=== PATIENT | female | born 1940 | race Caucasian/White ===

== ENCOUNTER 2021-11-08 22:52 | Inpatient (IN) | payer MEDICARE ==
[~2021-11-08] VITALS: Ht 175.3 cm; Wt 64.0 kg
[2021-11-08] MEDS ORDERED: IV NS 1000 ML 1,000 ML IV ONE (23:00)
[2021-11-08] MEDS ORDERED: MECLIZINE HCL 25 MG TABLET PO ONE (23:00)
[2021-11-08] MEDS ORDERED: PROCHLORPERAZINE EDISYLATE 10 MG/2 ML VIAL IV ONE (23:00)
[2021-11-08] MEDS ORDERED: MECLIZINE HCL 25 MG TABLET ONE (23:21)
[2021-11-08] MEDS ORDERED: PROCHLORPERAZINE EDISYLATE 10 MG/2 ML VIAL ONE (23:21)
--- NOTE | 2021-11-08 23:23 | NUR ---
pt brought in by [facility]. pt c/o nausea and high blood pressure. pt a/o
[2021-11-08 23:38] LABS: HEMATOCRIT 36.2 % (31.2-41.9); MEAN CORPUSCULAR HEMOGLOBIN 31.5 uug (24.7-32.8); MEAN CORPUSCULAR VOLUME 92.7 fL (75.5-95.3); PLATELET COUNT (AUTO) 193 K/uL (179-408)
[2021-11-08 23:40] LABS: CREATININE 0.6 mg/dL (0.6-1.3); POTASSIUM 3.3 mmol/L (3.5-5.1)
[2021-11-08 23:54] LABS: BILIRUBIN,DIRECT 0.1 mg/dL (0.0-0.2); BILIRUBIN,TOTAL 0.3 mg/dL (0.2-1.0); TOTAL PROTEIN, SERUM 6.6 g/dL (6.4-8.2)
[2021-11-09] MEDS: MAGNESIUM SULFATE/D5W 100 ML IV SCH ×4 (00:50→03:18)
[2021-11-09] MEDS ORDERED: MAGNESIUM SULFATE/D5W 400 ML ONE (00:51)
[2021-11-09] MEDS ORDERED: POTASSIUM CHLORIDE 200 ML ONE (00:52)
[2021-11-09 01:17] LABS: *BILIRUBIN,URIN NEGATIVE (NEGATIVE); *BLOOD, URINE NEGATIVE (NEGATIVE); *CLARITY,URINE CLEAR (CLEAR); *COLOR,URINE YELLOW (YELLOW); *KETONES,URINE 3+ (NEGATIVE); LEUKOCYTE ESTERASE ,URINE NEGATIVE (NEGATIVE); NITRITE, URINE NEGATIVE (NEGATIVE); UGLUCOSE NEGATIVE (NEGATIVE)
[2021-11-09] MEDS: POTASSIUM CHLORIDE 50 ML IV SCH ×4 (01:30→04:00)
--- NOTE | 2021-11-09 01:30 | NUR ---
pt moved to room 5a.
--- NOTE | 2021-11-09 01:50 | NUR ---
call to epic reach md on panel.
[2021-11-09] MEDS ORDERED: DEXAMETHASONE SOD PHOSPHATE 4 MG INJ IV ONE ×2 (02:00→09:00)
--- NOTE | 2021-11-09 02:19 | NUR ---
call to epic panel eduardo lee DNP.
[2021-11-09] MEDS ORDERED: MAGNESIUM HYDROXIDE 30 ML LIQUID UDC PO PRN (02:30)
[2021-11-09] MEDS ORDERED: ONDANSETRON 4 MG/2 ML VIAL IV PRN (02:30)
[2021-11-09] MEDS ORDERED: IV NS 1000 ML 1,000 ML IV PRN (02:30)
[2021-11-09] MEDS ORDERED: DEXAMETHASONE SOD PHOSPHATE 4 MG INJ ONE (02:31)
--- NOTE | 2021-11-09 02:34 | NUR ---
Brittni Wynn called spoke with Dr. Marte regarding admission to hospital.
[2021-11-09] MEDS ORDERED: ATOR10TA PO (03:15)
[2021-11-09] MEDS ORDERED: CARB200T PO (03:15)
[2021-11-09] MEDS: ENOXAPARIN SODIUM 40 MG/0.4 ML DISP.SYRIN SQ SCH ×2 (03:45→22:13)
[2021-11-09] MEDS ORDERED: ENOXAPARIN SODIUM 40 MG/0.4 ML DISP.SYRIN SQ ONE ×2 (03:51→22:18)
--- NOTE | 2021-11-09 07:07 | NUR ---
report given to fe kaplan.
[2021-11-09 07:09] LABS: HEMATOCRIT 36.6 % (31.2-41.9); MEAN CORPUSCULAR VOLUME 92.2 fL (75.5-95.3); PLATELET COUNT (AUTO) 210 K/uL (179-408)
[2021-11-09 07:24] LABS: CARBON DIOXIDE 24 mmol/L (21-32); CHLORIDE 101 mmol/L (98-107); CREATININE 0.5 mg/dL (0.6-1.3); GLUCOSE 111 mg/dL (74-106); MAGNESIUM 2.9 mg/dL (1.8-2.4); PHOSPHOROUS 2.7 mg/dL (2.5-4.9); POTASSIUM 4.1 mmol/L (3.5-5.1); UREA NITROGEN, BLOOD 8 mg/dL (7-18)
[2021-11-09] MEDS ORDERED: DEXAMETHASONE SOD PHOSPHATE 10 MG INJ ONE (08:47)
--- NOTE | 2021-11-09 09:30 | NUR ---
DR denney at the bedside for MSE.
[2021-11-09] MEDS ORDERED: CARB400T8 PO (12:37)
--- NOTE | 2021-11-09 19:37 | NUR ---
pt awake alert denies pain.
--- NOTE | 2021-11-10 01:02 | NUR ---
pt resting comfortably denies pain.
--- NOTE | 2021-11-10 01:49 | NUR ---
pt placed in hospital bed. pt ambulated to bed anival well, no dizziness noted.
[2021-11-10] MEDS: ACETAMINOPHEN 325 MG TABLET PO PRN ×2 (05:37→19:16)
[2021-11-10] MEDS ORDERED: ACETAMINOPHEN 325 MG TABLET ONE ×2 (05:43→19:22)
--- NOTE | 2021-11-10 07:34 | NUR ---
PT IS IN BED 1B. DR JOSEPH EVALUATED THE PT.
[2021-11-10] MEDS: CARBAMAZEPINE XR 100 MG TAB.SR.12H PO SCH ×2 (09:58→21:19)
[2021-11-10] MEDS ORDERED: CARBAMAZEPINE 200 MG TABLET ONE (10:01)
--- NOTE | 2021-11-10 14:43 | NUR ---
PT IS RESTING IN BED COMFORTABLY. NO S/S OF ACUTE DISTRESS AT THIS TIME.
--- NOTE | 2021-11-10 19:06 | NUR ---
RECEIVED REPORT FROM CHERIE ORTIZ. PT NOTED TO BE IN BED. NO SOB OR LABORED BREATHING. AFEBRILE.
--- NOTE | 2021-11-10 20:15 | NUR ---
PT NOTED TO BE SOILED, PROVIDED PROPER PERINEAL CARE, NOW NOTED TO BE CLEAN AND DRY. COMFORTABLE, DENIES ANY PAIN/DISCOMFORT.
[2021-11-10] MEDS ORDERED: ATORVASTATIN 10 MG TABLET PO SCH (21:00)
[2021-11-10] MEDS: ENOXAPARIN SODIUM 40 MG/0.4 ML DISP.SYRIN SQ SCH (21:19)
[2021-11-10] MEDS ORDERED: ENOXAPARIN SODIUM 40 MG/0.4 ML DISP.SYRIN SQ ONE (21:21)
[2021-11-10] MEDS ORDERED: CARBAMAZEPINE XR 100 MG TAB.SR.12H PO ONE (21:21)
--- NOTE | 2021-11-11 00:13 | NUR ---
PT IN BED EYES CLOSED, BREATHING EVEN AND UNLABORED.
--- NOTE | 2021-11-11 04:02 | NUR ---
Patient is resting comfortably in bed with eyes closed.
--- NOTE | 2021-11-11 06:22 | NUR ---
PROVIDED PT WITH BED BED AND PROPER PERINEAL CARE. DENIES ANY PAIN/DISCOMFORT. NOW RESTING COMFORTABLY IN BED, CLEAN AND DRY.
[2021-11-11] MEDS ORDERED: CEFTRIAXONE 1 G in IV DEXTROSE 5% 50 ML IV SCH (08:45)
[2021-11-11] MEDS ORDERED: AZITHROMYCIN IV 500 MG in IV DEXTROSE 5% 250 ML IV SCH (09:00)
[2021-11-11] MEDS ORDERED: DEXAMETHASONE SOD PHOSPHATE 4 MG INJ IV SCH (09:00)
[2021-11-11] MEDS ORDERED: DEXAMETHASONE SOD PHOSPHATE 10 MG INJ ONE (09:23)
[2021-11-11] MEDS ORDERED: AZITHROMYCIN 500MG/ D5W 250ML IVPB **ER PYXIS ONLY IV ONE (09:24)
[2021-11-11 09:30] LABS: HEMATOCRIT 39.2 % (31.2-41.9); MEAN CORPUSCULAR HEMOGLOBIN 31.3 uug (24.7-32.8); MEAN CORPUSCULAR VOLUME 91.6 fL (75.5-95.3); PLATELET COUNT (AUTO) 229 K/uL (179-408)
[2021-11-11 09:39] LABS: CREATININE 0.7 mg/dL (0.6-1.3); POTASSIUM 3.8 mmol/L (3.5-5.1)
[2021-11-11] MEDS: CARBAMAZEPINE XR 100 MG TAB.SR.12H PO SCH (09:39)
[2021-11-11 09:53] LABS: BILIRUBIN,TOTAL 0.4 mg/dL (0.2-1.0); MAGNESIUM 1.8 mg/dL (1.8-2.4); PHOSPHOROUS 3.7 mg/dL (2.5-4.9); THYROID STIMULATING HORMONE 0.951 mIU/mL (0.358-3.740); TOTAL PROTEIN, SERUM 6.9 g/dL (6.4-8.2)
[2021-11-11] MEDS ORDERED: AZIT250T PO (12:15)
--- NOTE | 2021-11-11 13:30 | NUR ---
Received telephone call from case folder Grisel ([phone]) who stated pt will be discharged home. Pt states she lives alone. PT came to eval the pt and stated pt was unable to ambulate with walker without assistance. PT stated she will call Grisel and update her.
--- NOTE | 2021-11-11 14:22 | NUR ---
PT WAS D/C'd TO HOME. D/C INSTRUCTIONS GIVEN TO THE PT BY DR LEE. PT EVALUATED THE PT AND TALKED TO STENCIL INSPECTOR DIXIE ABOUT ARRANGING PT's HOME CARE NURSE AND PT WISITS TO HELP THE PT. PT WAS TRANSFERED TO HER HOUS BY [facility]. NO S/S OF DISTRESS AT THE TIME OF DISCHARGE.
[2021-11-11 14:26] VITALS: BP 126/69
== END 2021-11-11 15:00 | disposition home health service (06) | DRG 177 ==
LOC: ER 22:56 → TRANSITION 11-09 03:21
PROVIDERS: ADMIT Internal Medicine; ATTEND Internal Medicine
DX: U07.1 COVID-19 (principal); J12.82 Pneumonia due to coronavirus disease 2019; R11.2 Nausea with vomiting, unspecified; E87.6 Hypokalemia; E78.5 Hyperlipidemia, unspecified; E83.42 Hypomagnesemia; R03.0 Elevated blood-pressure reading, without diagnosis of hypertension; Z88.0 Allergy status to penicillin; Z88.2 Allergy status to sulfonamides; Z87.891 Personal history of nicotine dependence
CPT/HCPCS: 36415; 70030-TC; 71045; 83735; 84100; 84443; 85025; 86140; 93005; 97161; A4663; G0378; J0456; J0780; J1100; J1650; J3475; J3480; J7030; J8597